=== PATIENT | male | born 1980 | race American Indian/Alaskan Native ===

== ENCOUNTER 2020-07-05 15:22 | Emergency (ER) | payer OTHER ==
[2020-07-05] MEDS ORDERED: IBUPROFEN 800 MG TAB PO ONE (19:09)
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
[2020-07-05 21:26] VITALS: BP 138/84
== END 2020-07-05 21:27 | disposition home or self-care (01) ==
LOC: ED 15:22
DX: S83.92XA Sprain of unspecified site of left knee, initial encounter (principal); S53.402A Unspecified sprain of left elbow, initial encounter; S20.212A Contusion of left front wall of thorax, initial encounter; F17.200 Nicotine dependence, unspecified, uncomplicated; Z91.013 Allergy to seafood; V89.2XXA Person injured in unspecified motor-vehicle accident, traffic, initial encounter; Y93.89 Activity, other specified; Y92.410 Unspecified street and highway as the place of occurrence of the external cause; Y99.8 Other external cause status
CPT/HCPCS: 99283